=== PATIENT | female | born 1950 | race Asian ===

== ENCOUNTER 2018-07-21 06:58 | Day surgery (SDC) | payer MEDICARE, OTHER ==
[~2018-07-21] VITALS: Ht 149.9 cm; Wt 53.9 kg
[2018-07-21] MEDS ORDERED: levothyroxine (08:06)
[2018-07-21] MEDS ORDERED: metformin (08:06)
[2018-07-21] MEDS ORDERED: simvastatin (08:06)
[2018-07-21] MEDS ORDERED: zantac (08:06)
[2018-07-21] MEDS ORDERED: losartan (08:06)
[2018-07-21] MEDS ORDERED: aspirin (08:06)
[2018-07-21 08:08] VITALS: Ht 149.9 cm; Wt 53.9 kg
--- NOTE | 2018-07-21 08:27 | PREAC ---
Date/Time of Note Date/Time of Note DATE: 07/21/18 TIME: 08:24 Anesthesia Eval and Record Evaluation Time Pre-Procedure Interview DATE: 07/21/18 TIME: 08:24 Age 67 Sex female NPO: 8 hrs Preoperative diagnosis abdominal pain, reflux, colon screening Planned procedure EGD, Colonoscopy Past Medical History Past Medical History: Includes Cardio: HTN, Dyslipidemia Endo: Diabetes, Hypothyroid GI: Obesity Surgery & Anesthesia Issues No known issue Meds Anticoagulation: Yes Beta Denice within 24 hr: No Reason Beta Denice not given: Pt. not on B-Denice Reported Medications [aspirin] No Conflict Check 07/21/18 [levothyroxine] No Conflict Check 07/21/18 [metformin] No Conflict Check 07/21/18 [simvastatin] No Conflict Check 07/21/18 [losartan] No Conflict Check 07/21/18 [zantac] No Conflict Check 07/21/18 Meds reviewed: Yes Allergies Coded Allergies: No Known Allergy (Unverified , 07/21/18) Allergies Reviewed: Yes Labs/Studies Labs Reviewed: Reviewed by anesthesiologist test: N/A Studies: ECG Pre-procedure Exam Last vitals BP:110/56, P:74, Spo2:100%, T:99 Airway: Adequate mouth opening, Adequate thyromental dist Mallampati: Mallampati II Teeth: Normal Lung: Normal Heart: Normal ASA Physical Status ASA physical status: 3 Emergency: None Planned Anesthetic General/MAC: MAC Planned Pain Management Parenteral pain med Pre-operative Attestations Prior to commencing anesthesia and surgery, the patient was re-evaluated, there was verification of: *The patient's identity *The results of appropriate recent lab work and preoperative vital signs *The above evaluation not changing prior to induction *Anesthetic plan, risk benefits, alternative and complications discussed with patient/family; questions answered; patient/family understands, accepts and wishes to proceed. LEONARDO CHAVEZ MD Jul 21, 2018 08:27
[2018-07-21] MEDS ORDERED: LIDOCAINE 2% (SDV) 5 ML INJ ONE (08:34)
[2018-07-21] MEDS ORDERED: PROPOFOL 60 ML ONE (08:34)
[2018-07-21 08:46] VITALS: BP 192/80; PULSE 90; RESP 20
--- NOTE | 2018-07-21 09:30 | PAC ---
Date/Time of Note Date/Time of Note DATE: 07/21/18 TIME: 09:30 Post-Anesthesia Notes Post-Anesthesia Note Last documented vital signs Vital Signs Date Temp Pulse Resp B/P (MAP) Pulse Ox O2 O2 Flow FiO2 Time Delivery Rate 07/21/18 97.8 90 20 192/80 100 Room Air 08:46 (117) Activity: WNL Respiratory function: WNL Cardiovascular function: WNL Mental status: Baseline Pain reasonably controlled: Yes Hydration appropriate: Yes Nausea/Vomiting absent: Yes Comments BP:122/56, P:78, Spo2:100%, T:98,8 LEONARDO CHAVEZ MD Jul 21, 2018 09:30
[2018-07-21 09:38] VITALS: BP 129/68; PULSE 77; RESP 16
== END 2018-07-21 13:49 | disposition home or self-care (01) ==
LOC: GIL 06:58
PROVIDERS: ATTEND Internal Medicine Gastroenterology
DX: K92.1 Melena (principal); K44.9 Diaphragmatic hernia without obstruction or gangrene; K21.9 Gastro-esophageal reflux disease without esophagitis; K64.4 Residual hemorrhoidal skin tags; K64.8 Other hemorrhoids; K57.30 Diverticulosis of large intestine without perforation or abscess without bleeding; I10 Essential (primary) hypertension; E11.9 Type 2 diabetes mellitus without complications; E03.9 Hypothyroidism, unspecified
CPT/HCPCS: 82962; 88305; 88312